=== PATIENT | male | born 1995 | race Asian ===

== ENCOUNTER 2019-11-07 19:00 | Emergency (ER) | payer OTHER ==
[~2019-11-07] VITALS: Ht 180.3 cm; Wt 64.0 kg
[2019-11-07] MEDS ORDERED: LIDOCAINE 1%, 10ML INFIL ONE (19:30)
[2019-11-07] MEDS ORDERED: LIDOCAINE-MPF 1%, 5ML ONE (19:58)
--- NOTE | 2019-11-07 20:08 | NUR ---
dr knott at for stapling of wound. pt resting in [facility] at this time; nadn. call light is within reach.
[2019-11-07] MEDS ORDERED: NEOSPORIN OINT. PKT 1 PACKET ONE (20:23)
[2019-11-07 20:38] VITALS: BP 119/74
== END 2019-11-07 20:40 ==
LOC: ED 20:34
DX: R55 Syncope and collapse (principal); J32.9 Chronic sinusitis, unspecified
CPT/HCPCS: 12002; 70450; 71045; 72125; 93005; 99284

== ENCOUNTER 2019-11-14 11:13 | Emergency (ER) | payer OTHER ==
[~2019-11-14] VITALS: Ht 170.2 cm; Wt 57.3 kg
[2019-11-14 11:22] VITALS: BP 98/57
== END 2019-11-14 11:54 ==
LOC: ED 11:48
DX: S01.01XD Laceration without foreign body of scalp, subsequent encounter (principal); X58.XXXD Exposure to other specified factors, subsequent encounter
CPT/HCPCS: 99281